=== PATIENT | female | born 1975 | race Caucasian/White ===

== ENCOUNTER 2021-05-16 18:29 | Emergency (ER) | payer SELFPAY ==
[~2021-05-16] VITALS: Ht 167.6 cm; Wt 58.5 kg
[2021-05-16 18:40] VITALS: BP 144/100
--- NOTE | 2021-05-16 18:45 | NUR ---
Pt given urine cup and ambulated to lobby with steady gait
--- NOTE | 2021-05-16 20:08 | NUR ---
I called patient in lobby and tent area, no answer. patient left without being seen by me or a physician.
--- NOTE | 2021-05-16 20:09 | NUR ---
PATIENT LEFT WITHOUT BEING SEEN BY DR. Pfeiffer. NO FURTHER CARE PROVIDED FOR PATIENT.
[2021-05-16] MEDS ORDERED: IBUP-2213 PO (23:27)
[2021-05-16] MEDS ORDERED: ONDA8TAB87 PO (23:27)
[2021-05-16] MEDS ORDERED: LIB25 PO (23:28)
== END 2021-05-16 20:08 | disposition left against medical advice (07) ==
LOC: MED 18:29
DX: R07.9 Chest pain, unspecified (principal); Z53.21 Procedure and treatment not carried out due to patient leaving prior to being seen by health care provider
CPT/HCPCS: 93005

== ENCOUNTER 2021-05-16 22:47 | Emergency (ER) | payer SELFPAY ==
[~2021-05-16] VITALS: Ht 167.6 cm; Wt 63.0 kg
[2021-05-16 22:56] VITALS: BP 123/90
--- NOTE | 2021-05-16 23:01 | NUR ---
PT EVALUATED BY DR. LÓPEZ
[2021-05-16] MEDS: ONDANSETRON 4 MG ODT PO ONE (23:26)
[2021-05-16] MEDS ORDERED: IBUP-2213 PO (23:27)
[2021-05-16] MEDS ORDERED: ONDA8TAB87 PO (23:27)
[2021-05-16] MEDS ORDERED: LIB25 PO (23:28)
--- NOTE | 2021-05-16 23:52 | NUR ---
Patient discharged with v/s stable. Written and verbal after care instructions given and explained. Patient alert, oriented and verbalized understanding of instructions. Ambulatory with steady gait. All questions addressed prior to discharge. ID band removed. Patient advised to follow up with PMD. Rx of LIBRIUM,MOTRIN, AND ZOFRAN given. Patient educated on indication of medication including possible reaction and side effects. Opportunity to ask questions provided and answered.
== END 2021-05-16 23:52 | disposition home or self-care (01) ==
LOC: MED 22:47
DX: F10.129 Alcohol abuse with intoxication, unspecified (principal); R11.2 Nausea with vomiting, unspecified; F17.210 Nicotine dependence, cigarettes, uncomplicated; F12.10 Cannabis abuse, uncomplicated; Y90.9 Presence of alcohol in blood, level not specified
CPT/HCPCS: 99283; Q0162